=== PATIENT | female | born 1980 ===

== ENCOUNTER 2022-11-28 19:51 | Emergency (ER) | payer SELFPAY ==
[2022-11-28] MEDS ORDERED: Haloperidol Lactate 5 MG/ML VIAL ONE (19:56)
[2022-11-28] MEDS ORDERED: LORazepam 2 MG/ML SYR.(CARPUJECT) ONE (19:56)
== END 2022-11-28 20:32 | disposition left against medical advice (07) ==
LOC: ERS 19:51
DX: Z00.00 Encounter for general adult medical examination without abnormal findings (principal)
CPT/HCPCS: J1630; J2060